=== PATIENT | male | born 1995 | race Two or more races ===

== ENCOUNTER → 2018-07-27 09:03 | Outpatient (CLI) | payer OTHER | END | disposition home or self-care (01) | LOC: LAB 09:03 | DX: D68.32 Hemorrhagic disorder due to extrinsic circulating anticoagulants (principal); D68.8 Other specified coagulation defects; D51.8 Other vitamin B12 deficiency anemias; D68.0 Von Willebrand disease; K75.89 Other specified inflammatory liver diseases; D68.69 Other thrombophilia; E56.1 Deficiency of vitamin K ==

== ENCOUNTER 2018-10-12 09:56 | Outpatient (CLI) | payer OTHER | END 2018-10-12 10:12 | disposition home or self-care (01) | LOC: LAB 09:56 | DX: D68.32 Hemorrhagic disorder due to extrinsic circulating anticoagulants (principal); D68.8 Other specified coagulation defects; D51.8 Other vitamin B12 deficiency anemias; D50.8 Other iron deficiency anemias; D68.0 Von Willebrand disease ==

== ENCOUNTER 2018-12-28 09:53 | Outpatient (CLI) | payer OTHER | END 2018-12-28 10:14 | disposition home or self-care (01) | LOC: LAB 09:53 | DX: D68.0 Von Willebrand disease (principal); D68.32 Hemorrhagic disorder due to extrinsic circulating anticoagulants; D51.8 Other vitamin B12 deficiency anemias; D50.8 Other iron deficiency anemias; I10 Essential (primary) hypertension; D51.1 Vitamin B12 deficiency anemia due to selective vitamin B12 malabsorption with proteinuria; D51.0 Vitamin B12 deficiency anemia due to intrinsic factor deficiency; D68.8 Other specified coagulation defects ==

== ENCOUNTER 2019-05-20 08:20 | Outpatient (CLI) | payer OTHER | END 2019-05-20 08:33 | disposition home or self-care (01) | LOC: LAB 08:20 | DX: D68.0 Von Willebrand disease (principal); D68.32 Hemorrhagic disorder due to extrinsic circulating anticoagulants; D50.8 Other iron deficiency anemias; D51.8 Other vitamin B12 deficiency anemias; I10 Essential (primary) hypertension ==